=== PATIENT | female | born 1935 | race Caucasian/White ===

== ENCOUNTER 2021-06-25 18:20 | Inpatient (IN) ==
[2021-06-25] MEDS ORDERED: GLUCAGON 1 MG VIAL IM PRN (19:53)
[2021-06-25] MEDS ORDERED: DOCUSATE SODIUM 100 MG CAPSULE PO PRN (19:53)
[2021-06-25] MEDS ORDERED: ONDANSETRON 4 MG/2 ML VIAL IV PRN (19:53)
[2021-06-25] MEDS ORDERED: ACETAMINOPHEN 325 MG TABLET PO PRN (19:53)
[2021-06-25] MEDS ORDERED: hydrALAZINE 20 MG/1 ML VIAL IV PRN (19:56)
[2021-06-25] MEDS ORDERED: DEXTROSE 50% 25 GM/50 ML SYRINGE IV PRN (19:59)
[2021-06-25 20:13] LABS: Basophils % 0.4 % (0.0-0.8); Eosinophils # 0.1 10*3/uL (0.0-0.87); Eosinophils % 1.3 % (0.00-10.9); Hematocrit 28.8 VOL% (35.7-47.0); Hemoglobin 8.9 GM/DL (12.0-16.0); Immature Granulocytes % 0.4 %; Immature Granulocytes Absolute 0.03 #; Lymphocytes # 1.2 10*3/uL (1.4-4.0); Lymphocytes % 16.6 % (21.3-54.2); Mean Corpuscular HGB Conc 30.9 GM/DL (32-36); Mean Corpuscular Volume 101.1 FL (87-102); Mean Platelet Volume 9.9 FL (9.6-12.0); Monocytes % 8.9 % (1.7-12.7); Neutrophils % 72.4 % (38.7-73.9); Platelet Count 225 T/CUMM (130-400); Red Blood Count 2.85 MC/CUMM (3.8-5.5); Red Cell Distribution Width 15.1 % (9.3-17.3); White Blood Count 7.2 T/CUMM (4-12)
[2021-06-25 20:15] LABS: Bacteria,Urine Few /HPF (Few); Bilirubin,Urine Negative (Negative); Blood, Urine Small mg/dL (Negative); Glucose,Urine (UA) Negative (Negative); Ketones,Urine Negative (Negative); Mucus,Urine Occasional /LPF (Occasional); Nitrite,Urine Negative (Negative); Protein,Urine Negative; RBC,Urine 4 /HPF (0-4); Squamous Epithelial Cell,Urine Occasional /HPF (0-10); Urine Appearance Slightly Hazy (Clear); Urine Color Yellow (Yellow); Urine Specific Gravity 1.008 (1.001-1.035); Urine Urobilinogen < 2.0 EU/DL (0.2-1.0)
[2021-06-25 20:40] LABS: Bilirubin,Total 0.4 MG/DL (0.20-1.00); Calcium 8.7 MG/DL (8.5-10.1); Osmolality,Calculated 285.1 MOS/KG (273-304); Potassium 4.6 MMOL/L (3.5-5.1); Total Protein 6.3 G/DL (6.4-8.2)
[2021-06-25 21:01] LABS: AFP Tumor < 2.2 NG/ML (0-8); Cancer Antigen 19-9 4.73 U/ML (0-35)
[2021-06-25] MEDS: INSULIN REGULAR 100 UNIT/ML SUBCUT SCH (22:23)
[2021-06-25] MEDS: SODIUM CHLORIDE 0.9% 1,000 ML IV SCH (23:24)
[2021-06-25] MEDS: MORPHINE 2 MG/1 ML SYRINGE IV PRN (23:25)
[2021-06-26] MEDS: MORPHINE 2 MG/1 ML SYRINGE IV PRN (03:49)
[2021-06-26 05:02] LABS: Basophils % 0.5 % (0.0-0.8); Eosinophils # 0.1 10*3/uL (0.0-0.87); Eosinophils % 1.9 % (0.00-10.9); Hematocrit 27.7 VOL% (35.7-47.0); Hemoglobin 8.9 GM/DL (12.0-16.0); Immature Granulocytes % 0.4 %; Immature Granulocytes Absolute 0.02 #; Lymphocytes % 16.7 % (21.3-54.2); Mean Corpuscular HGB Conc 32.1 GM/DL (32-36); Mean Corpuscular Volume 101.8 FL (87-102); Mean Platelet Volume 10.2 FL (9.6-12.0); Monocytes % 10.6 % (1.7-12.7); Neutrophils % 69.9 % (38.7-73.9); Platelet Count 209 T/CUMM (130-400); Red Blood Count 2.72 MC/CUMM (3.8-5.5); Red Cell Distribution Width 15.3 % (9.3-17.3); White Blood Count 5.7 T/CUMM (4-12)
[2021-06-26 05:28] LABS: Albumin 2.5 G/DL (3.4-5.0); Bilirubin,Total 0.6 MG/DL (0.20-1.00); Calcium 8.4 MG/DL (8.5-10.1); Osmolality,Calculated 283.1 MOS/KG (273-304); Potassium 4.4 MMOL/L (3.5-5.1); Risk Ratio 2.22; Total Protein 5.6 G/DL (6.4-8.2); VLDL Cholesterol 16.2 MG/DL
[2021-06-26] MEDS ORDERED: LIDOCAINE 2% 5 ML VIAL ONE (06:55)
[2021-06-26] MEDS ORDERED: ROCURONIUM 50 MG/5 ML VIAL IV ONE (06:55)
[2021-06-26] MEDS ORDERED: fentaNYL 100 MCG/2 ML VIAL ONE (06:55)
[2021-06-26] MEDS ORDERED: ETOMIDATE 40 MG/20 ML VIAL IV ONE (06:55)
[2021-06-26] MEDS ORDERED: DESFLURANE 1 UNIT/15 MINUTE INH ONE ×2 (06:55→08:52)
[2021-06-26] MEDS ORDERED: ePHEDrine 50 MG/ML VIAL ONE (07:51)
[2021-06-26] MEDS ORDERED: ONDANSETRON 4 MG/2 ML VIAL ONE (08:01)
[2021-06-26] MEDS ORDERED: DEXAMETHASONE 4 MG/1 ML VIAL ONE (08:01)
[2021-06-26] MEDS ORDERED: GLYCOPYRROLATE 0.4 MG/2 ML VIAL ONE (08:29)
[2021-06-26] MEDS ORDERED: NEOSTIGMINE 10 MG/10 ML VIAL ONE (08:30)
[2021-06-26] MEDS ORDERED: BISACODYL 10 MG SUPP RECTAL PRN (08:55)
[2021-06-26] MEDS ORDERED: TEMAZEPAM 7.5 MG CAPSULE PO PRN (08:55)
[2021-06-26] MEDS ORDERED: diphenhydrAMINE CAP 25 MG CAPSULE PO PRN (08:55)
[2021-06-26] MEDS ORDERED: LACTULOSE 20 GM/30 ML UDCUP PO PRN (08:55)
[2021-06-26] MEDS: INSULIN REGULAR 100 UNIT/ML SUBCUT SCH ×4 (10:53→20:59)
[2021-06-26] MEDS: PANTOPRAZOLE 40 MG TABLET PO SCH (10:54)
[2021-06-26] MEDS: SODIUM CHLORIDE 0.9% 1,000 ML IV SCH ×2 (10:55→23:45)
[2021-06-26] MEDS: carvediloL 6.25 MG TABLET PO SCH ×2 (12:22→20:59)
[2021-06-26] MEDS ORDERED: ZINC OXIDE PASTE 113 GM TUBE TOP PRN (14:56)
[2021-06-26] MEDS ORDERED: DEXTROSE 50% 25 GM/50 ML VIAL IV PRN (17:45)
[2021-06-26] MEDS ORDERED: GLUCAGON 1 MG VIAL IM PRN (17:45)
[2021-06-26] MEDS: APIXABAN 5 MG TABLET PO SCH (20:59)
[2021-06-27] MEDS: MORPHINE 2 MG/1 ML SYRINGE IV PRN (04:49)
[2021-06-27 06:31] LABS: Basophils % 0.1 % (0.0-0.8); Hematocrit 27.6 VOL% (35.7-47.0); Hemoglobin 8.7 GM/DL (12.0-16.0); Immature Granulocytes % 0.5 %; Immature Granulocytes Absolute 0.06 #; Lymphocytes # 0.7 10*3/uL (1.4-4.0); Lymphocytes % 5.7 % (21.3-54.2); Mean Corpuscular HGB Conc 31.5 GM/DL (32-36); Mean Corpuscular Volume 103.4 FL (87-102); Mean Platelet Volume 10.1 FL (9.6-12.0); Monocytes % 5.6 % (1.7-12.7); Neutrophils % 88.1 % (38.7-73.9); Platelet Count 162 T/CUMM (130-400); Red Blood Count 2.67 MC/CUMM (3.8-5.5); Red Cell Distribution Width 15.2 % (9.3-17.3); White Blood Count 11.6 T/CUMM (4-12)
[2021-06-27 06:54] LABS: Calcium 8.7 MG/DL (8.5-10.1); Osmolality,Calculated 284.1 MOS/KG (273-304); Potassium 4.9 MMOL/L (3.5-5.1)
[2021-06-27] MEDS: PANTOPRAZOLE 40 MG TABLET PO SCH (08:49)
[2021-06-27] MEDS: amLODIPine 5 MG TABLET PO SCH (08:49)
[2021-06-27] MEDS: carvediloL 6.25 MG TABLET PO SCH ×2 (08:49→20:51)
[2021-06-27] MEDS: APIXABAN 5 MG TABLET PO SCH ×2 (08:49→20:51)
[2021-06-27] MEDS: ISOSORBIDE DINITRATE 10 MG TABLET PO SCH (08:50)
[2021-06-27] MEDS: INSULIN REGULAR 100 UNIT/ML SUBCUT SCH ×4 (14:37→20:52)
[2021-06-27] MEDS: MAGNESIUM HYDROXIDE SUSP 30 ML UDCUP PO PRN (17:44)
[2021-06-28 05:06] LABS: Basophils % 0.3 % (0.0-0.8); Eosinophils # 0.1 10*3/uL (0.0-0.87); Eosinophils % 0.9 % (0.00-10.9); Hemoglobin 7.3 GM/DL (12.0-16.0); Immature Granulocytes % 0.4 %; Immature Granulocytes Absolute 0.03 #; Lymphocytes # 0.8 10*3/uL (1.4-4.0); Mean Corpuscular HGB Conc 31.7 GM/DL (32-36); Mean Platelet Volume 9.8 FL (9.6-12.0); Monocytes % 6.2 % (1.7-12.7); Neutrophils % 80.2 % (38.7-73.9); Platelet Count 193 T/CUMM (130-400); Red Cell Distribution Width 15.2 % (9.3-17.3); White Blood Count 6.8 T/CUMM (4-12)
[2021-06-28 05:38] LABS: Calcium 8.2 MG/DL (8.5-10.1); Osmolality,Calculated 280.4 MOS/KG (273-304); Potassium 4.4 MMOL/L (3.5-5.1)
[2021-06-28] MEDS ORDERED: SODIUM CHLORIDE 0.9% 1,000 ML IV PRN (07:23)
[2021-06-28] MEDS: SODIUM CHLORIDE 0.9% 1,000 ML IV SCH ×2 (07:24→18:24)
[2021-06-28] MEDS ORDERED: FUROSEMIDE 40 MG/4 ML VIAL IV PRN (07:24)
[2021-06-28] MEDS: INSULIN REGULAR 100 UNIT/ML SUBCUT SCH ×4 (08:20→20:48)
[2021-06-28] MEDS: amLODIPine 5 MG TABLET PO SCH (08:56)
[2021-06-28] MEDS: carvediloL 6.25 MG TABLET PO SCH ×2 (08:56→20:40)
[2021-06-28] MEDS: PANTOPRAZOLE 40 MG TABLET PO SCH (08:56)
[2021-06-28] MEDS: ISOSORBIDE DINITRATE 10 MG TABLET PO SCH (08:56)
[2021-06-28] MEDS: APIXABAN 5 MG TABLET PO SCH ×2 (08:56→20:40)
[2021-06-29] MEDS: MAGNESIUM HYDROXIDE SUSP 30 ML UDCUP PO PRN ×2 (02:42→10:25)
[2021-06-29 05:21] LABS: Basophils % 0.4 % (0.0-0.8); Eosinophils # 0.1 10*3/uL (0.0-0.87); Eosinophils % 1.1 % (0.00-10.9); Hematocrit 35.6 VOL% (35.7-47.0); Immature Granulocytes % 0.4 %; Immature Granulocytes Absolute 0.02 #; Lymphocytes # 0.7 10*3/uL (1.4-4.0); Lymphocytes % 13.7 % (21.3-54.2); Mean Platelet Volume 9.8 FL (9.6-12.0); Monocytes % 10.4 % (1.7-12.7); Platelet Count 151 T/CUMM (130-400); Red Blood Count 3.67 MC/CUMM (3.8-5.5); Red Cell Distribution Width 17.2 % (9.3-17.3); White Blood Count 5.3 T/CUMM (4-12)
[2021-06-29 05:23] LABS: Hemoglobin 11.4 GM/DL (12.0-16.0)
[2021-06-29] MEDS: SODIUM CHLORIDE 0.9% 1,000 ML IV SCH (05:46)
[2021-06-29 05:55] LABS: Calcium 8.5 MG/DL (8.5-10.1); Osmolality,Calculated 269.4 MOS/KG (273-304); Potassium 5.1 MMOL/L (3.5-5.1)
[2021-06-29 08:47] VITALS: BP 123/38
[2021-06-29] MEDS: ISOSORBIDE DINITRATE 10 MG TABLET PO SCH (08:59)
[2021-06-29] MEDS: APIXABAN 5 MG TABLET PO SCH (08:59)
[2021-06-29] MEDS: carvediloL 6.25 MG TABLET PO SCH (08:59)
[2021-06-29] MEDS: PANTOPRAZOLE 40 MG TABLET PO SCH (08:59)
[2021-06-29] MEDS: amLODIPine 5 MG TABLET PO SCH (09:30)
[2021-06-29] MEDS: INSULIN REGULAR 100 UNIT/ML SUBCUT SCH (09:30)
== END 2021-06-29 11:12 | DRG 522 ==
LOC: N.ED 18:20 → N.EDINP 19:50 → N.3E 21:22
PROVIDERS: ADMIT Internal Medicine; ATTEND Internal Medicine